=== PATIENT | female | born 1995 | race Caucasian/White ===

== ENCOUNTER → 2019-11-18 11:34 | Outpatient (CLI) | payer MEDICAID | END | disposition home or self-care (01) | LOC: D.US 11:34 | PROVIDERS: ATTEND Obstetrics & Gynecology Gynecology | DX: O09.90 Supervision of high risk pregnancy, unspecified, unspecified trimester (principal); Q93.88 Other microdeletions; Z3A.00 Weeks of gestation of pregnancy not specified ==